=== PATIENT | male | born 1975 | race Caucasian/White ===

== ENCOUNTER 2024-01-20 12:17 | Emergency (ER) | payer OTHER, SELFPAY ==
--- NOTE | 2024-01-20 12:19 | ED.MALEGU ---
HPI - Male Genitourinary General Chief complaint: Urogenital-Male Stated complaint: Uti Symptoms/Abdominal Pain Time Seen by Provider: 01/20/24 12:19 Source: patient Mode of arrival: ambulatory Limitations: no limitations History of Present Illness HPI Narrative: Landon is a 48-year-old male patient presenting to the clinic today with complaints of possible urinary tract infection/abdominal pain. He reports he woke up this morning with right upper/lower abdominal pain/tightness/distension. Rates the pain currently a 7/10. No associated nausea vomiting at this time. Does feel like he has some chills but no known fever. Did note a lot of blood in the toilet when he urinated this morning. Last bowel movement was this morning and normal for the patient. Denies any personal history of kidney stones-but has a family history. History of appendectomy. Related Data Home Medications Medication Instructions Recorded Confirmed aluminum chloride 20 % topical 1 applic topical DIRECTED 01/20/24 01/20/24 solution (Drysol) famotidine 40 mg tablet 40 mg PO DAILY 01/20/24 01/20/24 losartan 100 1 tablet PO DAILY 01/20/24 01/20/24 mg-hydrochlorothiazide 12.5 mg tablet Allergies Allergy/AdvReac Type Severity Reaction Status Date / Time No Known Allergies Allergy Verified 01/20/24 12:35 Review of Systems Review of Systems: Pertinent positives per HPI. Patient denies any fever, chills, rash, headache, visual changes, dizziness, cough, runny nose, sore throat, shortness of breath, chest pain, palpitations, nausea, vomiting, diarrhea, constipation, or any urinary issues. PMFSH Comments At the time of my signature, I reviewed and agree with the nursing past medical, surgical, social, and family history. There is no relevant family history pertinent to the patient complaint. Exam Narrative: General: Well-developed, well nourished, in no apparent distress. Head: Normocephalic, atraumatic. Cardio: Regular rate and rhythm, s1 and s2 normal, no murmur appreciated. Resp: Clear to auscultation bilaterally, no rhonchi, rales, wheezing or rubs. Abdomen: Soft, distended, pliable, reducible ventral hernia to the mid abdomen, bowel sounds present in all quadrants, tender to palpation over the right lower/right upper abdomen, no organomegly, no CVAT tenderness. : Deferred Course Course Emergency Course: Portions of this record may have been created with voice recognition software. Level of Care: Express Care Visit Vital Signs Vital signs: Vital signs reviewed MDM - Male Genitourinary MDM Narrative Medical decision making narrative: At the time of visit patient is resting comfortably on the exam table. Patient appears to be nontoxic. Labs: UA dip shows 3+ blood and trace of protein without leukocytes or nitrates. Plan: Urinalysis shows 3+ blood and trace of protein. Right upper/lower quadrant abdominal pain. Has reducible ventral hernia. Recommend transfer to the ER for further evaluation. Patient is agreeable to transfer and would like to go to [facility]. Contacted Dr. Vick at [facility] and he accepts patient for transfer. Differential Diagnosis Differential diagnosis: Likely urinary tract infection, epididymitis, prostatitis, acute retention of urine, inguinal hernia and other (Ventral hernia, ureterolithiasis, cholecystitis, pancreatitis, bladder mass) Discharge Plan Discharge Clinical Impression: Gross hematuria, Right sided abdominal pain Patient Disposition: Acute Care Hospital Condition: Stable Instructions: Antibiotic Form Prescriptions: No Action famotidine 40 mg tablet 40 mg PO DAILY Drysol 20 % solution 1 applic TOPICAL DIRECTED losartan-hydrochlorothiazide 100-12.5 mg tablet 1 tablet PO DAILY Follow-up/Referrals: Angelica,Daily Galo MD [Primary Care Provider] - Time of Disposition: 12:40 Quality NIHSS Nursing Documentation ED NIHSS nu
[2024-01-20 12:28] VITALS: BP 170/107; PULSE 87; RESP 15; TEMP 36.5; O2SAT 98
[2024-01-20 12:41] LABS: EDUAAPPEAR Cloudy; EDUABILI Negative; EDUABLOOD 3+; EDUACOLOR1 Yellow; EDUAGLUCOSE Negative; EDUAKETONE Negative; EDUALEUKO Negative; EDUANITRATE Negative; EDUAPROTEIN Trace; EDUAUROBILI 0.2
== END 2024-01-20 12:40 | disposition short-term general hospital (02) ==
PROVIDERS: Emergency Provider Nurse Practitioner Family; PCP Internal Medicine Geriatric Medicine
DX: R31.0 Gross hematuria (principal); R10.11 Right upper quadrant pain; R10.31 Right lower quadrant pain; I10 Essential (primary) hypertension; K21.9 Gastro-esophageal reflux disease without esophagitis
CPT/HCPCS: 81003; 99212; G0463

== ENCOUNTER 2024-01-20 12:58 | Emergency (ER) | payer OTHER, SELFPAY ==
--- NOTE | ~2024-01-20 | CT_ITS ---
CT abdomen pelvis wo con Ordering provider: Tariq Vick MD History: 48 years Male with . right flank pain . Comparison: None. Technique: CT abdomen and pelvis with IV and without oral contrast. Automated exposure control and it erative reconstruction technique were employed. The dose-length product was 1002.25 mGy-cm. Findings: VISUALIZED LOWER CHEST: Normal. UPPER ABDOMINAL ORGANS: Liver: Normal. Gallbladder: Normal. Spleen: Normal. Stomach/duodenum: Normal. Pancreas: Normal. Adrenals: Normal. Kidneys: Large right kidney mass is noted measuring 16.3 x 12.2x 17.1 cm. Small cyst in the right ki dney is also seen measuring 2.4 cm. Small cyst is also seen in the left kidney lower pole. Measuring 1.9 cm.. Left kidney lower pole cyst is also seen measuring 2.8 cm. PELVIC ORGANS: The bladder is underfilled with thickened wall. BOWEL AND MESENTERY: Colon: No evidence of diverticulitis. The appendix is not demonstrated. Most likely a remote surgical ly. Small Bowel: Normal. No obstruction. Peritoneum/mesentery: No free air or free fluid. No mesenteric lymphadenopathy. Prominent vessels are seen in the right side of the abdomen. RETROPERITONEUM: Normal aorta. Small para-aortic lymph nodes are seen with the largest measures 1 cm . MUSCULOSKELETAL: Superficial soft tissues: Left inguinal fat containing hernia. The superficial soft tissues are alyson l. Bones: Age appropriate degenerative changes of the spine. Sclerotic changes seen anteriorly at the le ludmila of T10 and T11. IMPRESSION: 1. Large mass in the right kidney lower pole most likely renal cell carcinoma. 2. No acute appendicitis, diverticulitis or intestinal obstruction. Reviewed, dictated and finalized at location A.
--- NOTE | ~2024-01-20 | CT_ITS ---
CT abdomen pelvis w con Ordering provider: Tariq Vick MD History: 48 years Male with . kidney mass . Comparison: January 20, 2024 Technique: CT abdomen and pelvis with IV and without oral contrast. Automated exposure control and it erative reconstruction technique were employed. The dose-length product was 1045.90 mGy-cm. 100 ML Om nipaque 350 was given IV. Findings: VISUALIZED LOWER CHEST: Normal. UPPER ABDOMINAL ORGANS: Liver: Normal. Gallbladder: Normal. Spleen: Normal. Stomach/duodenum: Normal. Pancreas: Normal. Adrenals: Normal. Kidneys: Large mass seen in the right lower pole measuring 16.3 x 12.2 x 17.1 cm. Multiple cysts seen in both kidneys. Hydronephrotic changes in the right kidney. PELVIC ORGANS: The bladder is underfilled with thickened wall. BOWEL AND MESENTERY: Colon: No evidence of diverticulitis. The appendix is not demonstrated. Small Bowel: Normal. No obstruction. Peritoneum/mesentery: No free air or free fluid. No mesenteric lymphadenopathy. RETROPERITONEUM: Normal aorta. lymphadenopathy. MUSCULOSKELETAL: Superficial soft tissues: Small left inguinal fat containing hernia. Small fat-containing umbilical h ernia. Otherwise, The superficial soft tissues are normal. Bones: Small sclerotic changes at the level of T10-T11. Otherwise normal IMPRESSION: 1. Large Right renal mass. 2. Right hydronephrotic changes. 3. Prominent vessels in the right side most likely related to the right renal artery. Reviewed, dictated and finalized at location A.
[2024-01-20 13:07] VITALS: BP 152/100; PULSE 92; RESP 20; TEMP 36.3; O2SAT 98
[2024-01-20 14:27] VITALS: BP 164/95; PULSE 74; RESP 16; O2SAT 98
[2024-01-20 14:52] LABS: Basophils Absolute Auto 0.1 K/mm3 (0.0-0.1); Basophils Percent Auto 0.7 % (0.2-1.2); Eosinophils Percent Auto 0.4 % (0-4.4); Hematocrit 40.6 % (42.0-52.0); Hemoglobin 12.8 g/dL (14.0-18.0); Immature Granulocyte Absolute 0.05 K/mm3 (0.00-0.031); Immature Granulocyte Percent A 0.4 % (0-0.5); Lymphocytes Absolute Auto 1.22 K/mm3 (0.9-3.2); Lymphocytes Percent Auto 10.8 % (18.3-44.2); Mean Corpuscular HGB Conc 31.5 g/dl (32-36); Mean Corpuscular Hemoglobin 27.2 pg (26-34); Mean Corpuscular Volume 86.4 fl (80-100); Mean Platelet Volume 9.4 fl (7.4-10.4); Monocytes Absolute Auto 0.8 K/mm3 (0.1-0.6); Monocytes Percent Auto 7.4 % (2.6-8.5); Neutrophils Absolute Auto 9.1 K/mm3 (1.3-6.7); Neutrophils Percent Auto 80.3 % (45.5-73.1); Platelet Count Result 284 k/mm3 (150-375); Red Cell Distribution Width 13.1 % (11.5-14.5); White Blood Count 11.3 K/mm3 (4.5-10.0)
[2024-01-20 15:00] LABS: Alanine Aminotransferase 25 U/L (6-50); Albumin Level 4.6 g/dL (3.5-5.1); Alkaline Phosphatase 89 U/L (38-126); Anion Gap 12 mmol/L (4-12); Aspartate Amino Transferase 29 U/L (17-59); Bilirubin,Total 0.5 mg/dL (0.2-1.3); Blood Urea Nitrogen 14 mg/dL (9-20); Calcium 8.9 mg/dL (8.4-10.2); Carbon Dioxide 27 mmol/L (22-30); Chloride 100 mmol/L (98-107); Estimated CRCL calculation 85 ml/min; Estimated Glomerular Filt Rate > 60; Glucose 128 mg/dL (65-110); Lipase 60 U/L (23-300); Potassium 4.1 mmol/L (3.4-5.0); Sodium 139 mmol/L (137-145)
[2024-01-20] MEDS: SODIUM CHLORIDE 0.9% IV 1,000 ML 999 ML IV CONT (15:27)
[2024-01-20] MEDS: MORPHINE SULFATE (*CRX) 4 MG/ML INJ IV PUSH (15:27)
[2024-01-20 15:30] VITALS: BP 164/98; PULSE 79; RESP 16; O2SAT 98
[2024-01-20 15:44] LABS: Appearance Urine Cloudy (Clear); Bacteria Urine None Seen /hpf; Bilirubin Urine Negative (Negative); Blood Urine 3+ (Negative); Color Urine Yellow (Yellow); Glucose Urine UA Negative (Negative); Ketones Urine Negative (Negative); Leukocyte Esterase Ur Negative LEU/UL (Negative); Nitrate Urine Negative (Negative); Non Pathogenic Casts 0-2; Protein Urine Trace mg/dL (Negative); RBC Urine >100 /hpf (0-2); Specific Grav Ur 1.019 (1.001-1.035); Squamous Epithelial Cell Urine None Seen /hpf (Few); WBC Urine 0-5 /hpf (0-3); pH Urine 7.5 (5.0-9.0)
[2024-01-20 15:50] LABS: Add Urine Microscopic? YES
--- NOTE | 2024-01-20 16:40 | WPDURCON ---
Assessment and Plan Assessment and plan (1) Neoplasm of right kidney: Code(s): D49.511 - Neoplasm of unspecified behavior of right kidney Status: Acute Assessment and Plan: Findings discussed with patient. Will set up outpatient follow-up with 1 of my oncology colleagues. Patient is agreeable to the plan. He will likely be discharged home with oral pain medicine for flank pain. Will ultimately require nephrectomy. Treatment of kidney cancer outlined to patient (2) Gross hematuria: Code(s): R31.0 - Gross hematuria Status: Acute Assessment and Plan: Resolved Urology Consult Note HPI Date Seen: 01/20/24 Requesting Physician: Dr. Vick Primary Care Provider: Daily Dominguez, Consult Narrative Narrative: Landon Enamorado is a 48 year old male who is healthy. He has a 1 day history of right flank pain and gross hematuria. This prompted a visit to the emergency room. He underwent a CT scan because they thought he had a renal stone. This CAT scan was done without contrast. It showed no stone but a large right renal mass. It was repeated with contrast confirming the large 15+ cm renal mass. His gross hematuria has resolved. His abdominal pain is improved. CT scan is consistent with a renal cell carcinoma. I informed him of these findings. There does not seem to be any signs of metastasis. He will ultimately likely require nephrectomy. I will set him up with 1 of our oncology colleagues. If he is stable he can likely be discharged home from the emergency room Review of Systems Review of Systems: All systems reviewed & are unremarkable except as noted in HPI and below Meds Home Medications and Allergies Home Medications Medication Instructions Recorded Confirmed Type aluminum chloride 20 % topical 1 applic topical DIRECTED 01/20/24 01/20/24 History solution (Drysol) famotidine 40 mg tablet 40 mg PO DAILY 01/20/24 01/20/24 History losartan 100 1 tablet PO DAILY 01/20/24 01/20/24 History mg-hydrochlorothiazide 12.5 mg tablet Allergies Allergy/AdvReac Type Severity Reaction Status Date / Time No Known Allergies Allergy Verified 01/20/24 14:20 Vital Signs Vital Signs - 24 hr 01/20/24 13:07 01/20/24 14:27 01/20/24 15:30 Temperature 97.3 F L Pulse Rate 92 74 79 Respiratory Rate 20 16 16 Blood Pressure 152/100 H 164/95 H 164/98 H Pulse Oximetry 98 98 98 Exam Const: General: cooperative, healthy appearing, no acute distress, alert, awake and Physically active; No anxious or combative Nutritional Appearance: average body habitus Orientation/consciousness: patient oriented x3 Limitations: no limitations HENMT: Head: normal to inspection Eyes: General: appearance normal, both eyes and all related structures Neck: Neck: normal visual inspection and full ROM Resp: Effort & Inspection: normal respiratory effort, able to speak in complete sentences, no cough, no grunting and not labored GI: Inspection: normal to inspection, no large pannus and no obesity Back/Spine/Pelvis: Back: CVA tenderness Skin: General skin exam: normal color, no rashes or lesions noted, elasticity normal and turgor normal Lesions: no lesions Neuro: General: patient oriented x3 and moves all extremities Extrem: General: normal to inspection and full ROM Psych: Appearance: grossly normal and well kempt Results Labs 01/20/24 14:29 01/20/24 14:29 Labs: Short CBC 01/20/24 Range/Units 14:29 WBC 11.3 H (4.5-10.0) K/mm3 Hgb 12.8 L (14.0-18.0) g/dL Hct 40.6 L (42.0-52.0) % Plt Count 284 (150-375) k/mm3 BMP 01/20/24 14:29 Sodium 139 Potassium 4.1 Chloride 100 Carbon Dioxide 27 BUN 14 Creatinine 1.10 Glucose 128 H Calcium 8.9 Liver Function 01/20/24 Range/Units 14:29 Total Bilirubin 0.5 (0.2-1.3) mg/dL AST 29 (17-59) U/L ALT 25 (6-50) U/L Alkaline Phosphatase
[2024-01-20 16:42] VITALS: BP 143/91; PULSE 72; RESP 16; O2SAT 95
[2024-01-20] MEDS: KETOROLAC 30 MG/ML VIAL (*BKC) IV PUSH (16:48)
--- NOTE | 2024-01-20 17:17 | ED.ABDPAIN ---
HPI - Abdominal Pain General Chief Complaint: Abdominal Pain Stated Complaint: abd pain Time Seen by Provider: 01/20/24 15:09 History of Present Illness HPI narrative: Patient is a 48-year-old male who presents ER with right-sided abdominal pain. Associated with hematuria that began today. Has not had this pain before. No history of kidney stones. No fevers chills or sweats. No urinary frequency urgency. No trauma. Related Data Home Medications Medication Instructions Recorded Confirmed aluminum chloride 20 % topical 1 applic topical DIRECTED 01/20/24 01/20/24 solution (Drysol) famotidine 40 mg tablet 40 mg PO DAILY 01/20/24 01/20/24 losartan 100 1 tablet PO DAILY 01/20/24 01/20/24 mg-hydrochlorothiazide 12.5 mg tablet Allergies Allergy/AdvReac Type Severity Reaction Status Date / Time No Known Allergies Allergy Verified 01/20/24 14:20 Review of Systems Review of Systems: All systems reviewed & are unremarkable except as noted in HPI and below Constitutional: Constitutional: Reports no additional constitutional complaints Cardiovascular: Cardiovascular: Reports no additional cardiovascular complaints Respiratory: Respiratory: Reports no additional respiratory complaints Gastrointestinal: Gastrointestinal: Reports abdominal pain, Denies diarrhea, Denies nausea and Denies vomiting Genitourinary: Genitourinary: Reports hematuria, Denies oliguria, Denies dysuria and Denies urinary frequency Musculoskeletal: Musculoskeletal: Reports no additional musculoskeletal complaints PMFSH Past Medical History Medical History (Updated 01/20/24 @ 17:22 by Tariq Vick MD) Hypertension Surgical History Surgical History (Updated 01/20/24 @ 17:22 by Tariq Vick MD) No pertinent past surgical history Exam Narrative: GENERAL: Well-appearing, well-nourished, and in no acute distress. HEAD: Normocephalic, atraumatic. ENT: Mucous membranes moist. NECK: Supple. CHEST: Clear to auscultation. No respiratory distress. HEART: Regular rate and rhythm. Normal peripheral pulses. ABDOMEN: Soft, nontender, nondistended. EXTREMITIES: Normal range of motion. No edema. SKIN: Warm, dry, no rash. NEURO: Alert and oriented x3. PSYCH: Normal mood and affect. Course Course Emergency Course: Patient educated about renal mass. Urology came to bedside to discuss with patient as well. Appropriate for discharge home and follow-up outpatient. Vital Signs Vital signs: Vital Signs Temperature 97.3 F L 01/20/24 13:07 Pulse Rate 92 01/20/24 13:07 Respiratory Rate 20 01/20/24 13:07 Blood Pressure 152/100 H 01/20/24 13:07 Pulse Oximetry 98 01/20/24 13:07 Temperature 98.2 F 01/20/24 17:53 Pulse Rate 77 01/20/24 17:53 Respiratory Rate 15 01/20/24 17:53 Blood Pressure 139/92 H 01/20/24 17:53 Pulse Oximetry 96 01/20/24 17:53 MDM - Abdominal Pain Lab Data 01/20/24 14:29 01/20/24 14:29 Labs: Lab Results 01/20/24 01/20/24 Range/Units 14:29 15:31 WBC 11.3 H (4.5-10.0) K/mm3 RBC 4.70 (4.6-6.20) M/mm3 Hgb 12.8 L (14.0-18.0) g/dL Hct 40.6 L (42.0-52.0) % MCV 86.4 (80-100) fl MCH 27.2 (26-34) pg MCHC 31.5 L (32-36) g/dl RDW 13.1 (11.5-14.5) % Plt Count 284 (150-375) k/mm3 MPV 9.4 (7.4-10.4) fl Immature Gran % (Auto) 0.4 (0-0.5) % Neut % (Auto) 80.3 H (45.5-73.1) % Lymph % (Auto) 10.8 L (18.3-44.2) % [place] % (Auto) 7.4 (2.6-8.5) % Eos % (Auto) 0.4 (0-4.4) % Baso % (Auto) 0.7 (0.2-1.2) % Lymph # (Auto) 1.22 (0.9-3.2) K/mm3 [place] # (Auto) 0.8 H (0.1-0.6) K/mm3 Eos # (Auto) 0.0 (0-0.3) K/mm3 Baso # (Auto) 0.1 (0.0-0.1) K/mm3 Abs Immat Gran (auto) 0.05 H (0.00-0.031) K/mm3 Absolute Neuts (auto) 9.1 H (1.3-6.7) K/mm3 Absolute Nucleated RBC 0.000 (0.0-0.012) K/mm3 Nucleated RBC % 0.0 (0.0-0.2) % Sodium 139 (137-145) mmol/L Pota
[2024-01-20 17:53] VITALS: BP 139/92; PULSE 77; RESP 15; TEMP 36.8; O2SAT 96
== END 2024-01-20 17:55 | disposition home or self-care (01) ==
PROVIDERS: Emergency Provider Emergency Medicine; PCP Internal Medicine Geriatric Medicine
DX: R31.9 Hematuria, unspecified (principal); N28.89 Other specified disorders of kidney and ureter; I10 Essential (primary) hypertension; Z79.899 Other long term (current) drug therapy
CPT/HCPCS: 36415; 74176; 74177; 74178; 80053; 81001; 81003; 83690; 85025; 96361; 96374; 96375; 99284; J1885; J2270; J7030; Q9967